=== PATIENT | female | born 1960 | race Caucasian/White ===

== ENCOUNTER 2017-06-25 22:22 | Emergency (ER) | payer OTHER ==
[2017-06-25 23:02] LABS: Hematocrit 39.5 % (36.0-47.0); Mean Platelet Volume 6.2 fL (7.4-10.4); Red Blood Cell (RBC) Count 3.94 mill/uL (4.20-5.40); White Blood Cell (WBC) Count 5.6 thou/uL (4.8-10.8)
[2017-06-25 23:14] LABS: ALT (SGPT) 17 U/L (8-55); AST (SGOT) 18 U/L (5-34); Alkaline Phosphatase 55 U/L (40-150); Anion Gap 14 mmol/L (10-20); BUN (Urea Nitrogen) 10 mg/dL (9.8-20.1); Bilirubin, Total 0.3 mg/dL (0.2-1.2); Calc. Creatinine Clearance 0 mL/min (70-130); Calcium 9.2 mg/dL (7.8-10.44); Carbon Dioxide 25 mmol/L (22-29); Chloride 105 mmol/L (98-107); Estimated GFR-MDRD 86; Globulin 3.5 g/dL (2.4-3.5); Protein, Total 7.9 g/dL (6.0-8.3)
[2017-06-25 23:15] LABS: Acetaminophen Less than 6.0 mcg/mL (10.0-30.0); CK (CPK) 55 U/L (29-168); Salicylate Less than 8.0 mg/dL (15.0-30.0)
[2017-06-25 23:16] LABS: Neutrophil 41 % (42-75); Reactive Lymphocytes 2 % (0-10)
[2017-06-25 23:27] LABS: Bilirubin Negative (Negative); Blood, Urine Negative (Negative); Glucose, Urine (Dipstick) Negative (Negative); Ketone, Urine Negative (Negative); Nitrite Negative (Negative); Protein, Urine (Dipstick) Negative (Neg-Trace); Urobilinogen 0.2 mg/dL (0.2-1.0)
[2017-06-25 23:39] LABS: Amphetamine Not Detected (NotDetected); Methadone Not Detected (NotDetected); Methamphetamine Not Detected (NotDetected)
[2017-06-26] MEDS ORDERED: Bacitracin Zinc 1 Packet ONE (00:20)
[2017-06-26] MEDS ORDERED: Ibuprofen 200 MG TAB ONE (00:36)
[2017-06-26] MEDS ORDERED: Adacel (T-DAP) 0.5 ML VIAL ONE (01:13)
== END 2017-06-26 12:42 ==
LOC: ERS 22:22
DX: S61.512A Laceration without foreign body of left wrist, initial encounter (principal); F32.9 Major depressive disorder, single episode, unspecified; F41.9 Anxiety disorder, unspecified; F43.10 Post-traumatic stress disorder, unspecified; F90.9 Attention-deficit hyperactivity disorder, unspecified type; F17.210 Nicotine dependence, cigarettes, uncomplicated; X78.1XXA Intentional self-harm by knife, initial encounter
CPT/HCPCS: 36415; 80053; 80306; 80307; 81003; 81025; 82550; 84443; 85025; 90471; 90715

== ENCOUNTER 2017-07-15 09:56 | Emergency (ER) | payer OTHER ==
[2017-07-15] MEDS ORDERED: HYDROcodone/Acetaminophen 5/325 mg Tablet ONE (10:50)
--- NOTE | 2017-07-15 11:14 | RAD ---
LUMBAR SPINE SERIES 3 VIEWS: Date: 07/15/17 HISTORY: Fell down stairs 3 days ago with back pain. FINDINGS: The vertebral bodies maintain normal height. There is disc narrowing and vacuum disc phenomenon at L5 -S1. Small osteophytes are seen at the other vertebral body levels without significant disc narrowing . No compression fracture. Pedicles are intact. IMPRESSION: Moderate degenerative disc narrowing at L5-S1. No acute injury. POS: [facility]
== END 2017-07-15 11:47 | disposition home or self-care (01) ==
LOC: SCSER 09:56
DX: S39.012A Strain of muscle, fascia and tendon of lower back, initial encounter (principal); B00.1 Herpesviral vesicular dermatitis; G89.4 Chronic pain syndrome; K58.9 Irritable bowel syndrome, unspecified; F31.9 Bipolar disorder, unspecified; F43.10 Post-traumatic stress disorder, unspecified; F90.9 Attention-deficit hyperactivity disorder, unspecified type; F17.210 Nicotine dependence, cigarettes, uncomplicated; Z79.899 Other long term (current) drug therapy; W10.9XXA Fall (on) (from) unspecified stairs and steps, initial encounter
CPT/HCPCS: 72100

== ENCOUNTER 2017-07-19 12:59 | Emergency (ER) | payer OTHER | END 2017-07-19 13:29 | disposition left against medical advice (07) | LOC: SCSER 12:59 | DX: B00.1 Herpesviral vesicular dermatitis (principal); G89.29 Other chronic pain; F31.9 Bipolar disorder, unspecified; F41.9 Anxiety disorder, unspecified; F43.10 Post-traumatic stress disorder, unspecified; F90.9 Attention-deficit hyperactivity disorder, unspecified type; F17.210 Nicotine dependence, cigarettes, uncomplicated; G62.9 Polyneuropathy, unspecified; M19.90 Unspecified osteoarthritis, unspecified site; Z79.899 Other long term (current) drug therapy | CPT/HCPCS: 36415; 80053; 85025; 86780; 99283 ==

== ENCOUNTER 2017-08-04 01:49 | Emergency (ER) | payer OTHER ==
[2017-08-04] MEDS ORDERED: Cephalexin 500 MG CAP ONE (02:28)
[2017-08-04] MEDS ORDERED: Diazepam 5 MG TAB ONE (02:41)
== END 2017-08-04 02:47 | disposition home or self-care (01) ==
LOC: SCSER 01:49
DX: G62.9 Polyneuropathy, unspecified (principal); K13.0 Diseases of lips; F17.210 Nicotine dependence, cigarettes, uncomplicated; F43.10 Post-traumatic stress disorder, unspecified; F90.9 Attention-deficit hyperactivity disorder, unspecified type; F41.9 Anxiety disorder, unspecified; F31.9 Bipolar disorder, unspecified; M19.90 Unspecified osteoarthritis, unspecified site; Z79.891 Long term (current) use of opiate analgesic; Z79.899 Other long term (current) drug therapy
CPT/HCPCS: 99283

== ENCOUNTER 2017-08-05 18:02 | Emergency (ER) | payer OTHER | END 2017-08-05 20:55 | LOC: ERS 18:02 | DX: K13.70 Unspecified lesions of oral mucosa (principal); F41.9 Anxiety disorder, unspecified; F31.9 Bipolar disorder, unspecified; F43.10 Post-traumatic stress disorder, unspecified; F90.9 Attention-deficit hyperactivity disorder, unspecified type; F17.290 Nicotine dependence, other tobacco product, uncomplicated; M19.90 Unspecified osteoarthritis, unspecified site; B19.20 Unspecified viral hepatitis C without hepatic coma; Z79.899 Other long term (current) drug therapy | CPT/HCPCS: 99282 ==

== ENCOUNTER 2018-05-15 16:40 | Emergency (ER) | payer OTHER ==
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
== END 2018-05-15 21:04 | disposition home or self-care (01) ==
LOC: SCSER 16:40
DX: S01.01XA Laceration without foreign body of scalp, initial encounter (principal); F41.9 Anxiety disorder, unspecified; F32.9 Major depressive disorder, single episode, unspecified; F90.9 Attention-deficit hyperactivity disorder, unspecified type; Z87.891 Personal history of nicotine dependence; Z79.899 Other long term (current) drug therapy; Y00.XXXA Assault by blunt object, initial encounter
CPT/HCPCS: 12002; 70450; 72125

== ENCOUNTER 2018-12-28 08:24 | Emergency (ER) | payer OTHER ==
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
--- NOTE | 2018-12-28 10:50 | CT ---
CT CERVICAL SPINE WITHOUT CONTRAST: Date: 12/28/18 HISTORY: Patient had a fall, bumped her head. COMPARISON: None. FINDINGS: No craniocervical dissociation. Lateral masses of C1 and C2 articulate appropriately. Intact odontoid process. Uncomplicated cervical fusion from C5 through C7. Disc prosthesis at C5-C6 and C6-C7 is noted. Straightening of normal cervical lordosis may be due to patient position, muscle spasm, or cervical c ollar. Current study is not tailored to assess for ligamentous injury. There is no prevertebral soft tissue swelling. Mass effect upon the posterior oral cavity due to medi al deviation of both carotid arteries is noted. There is no significant central canal stenosis. Varying degrees of foraminal narrowing due to degener ative change. Evaluation limited by technique. Presumed chronic change of visualized lung parenchyma. Cervical spine vertebral body height is maintained. There is no cervical spine fracture. IMPRESSION: 1. No cervical spine fracture. 2. Straightening of normal cervical lordosis as detailed above. If there is concern for ligamentous injury, consider MRI. POS: [facility]
--- NOTE | 2018-12-28 11:52 | CT ---
Exam: Lumbar spine CT scan without IV contrast: HISTORY: Injury, fall FINDINGS: No evidence for acute fracture or facet dislocation. Mild disc bulging at L2-L3 with slight lateral recess thickening. Mild central canal stenosis and lateral recess thinning at L3-L4. Severe canal and left lateral recess stenosis at L4-L5 secondary to a left paracentral protrusion wit h some left foraminal stenosis. Considerable sclerosis and desiccation changes at L5-S1 with moderate bilateral foraminal stenosis. IMPRESSION: No acute fracture or dislocation. Multilevel variable severity canal, lateral recess, and foraminal s tenosis, most marked at L4-L5.
--- NOTE | 2018-12-28 11:59 | CT ---
Exam: Thoracic spine CT scan without IV contrast: HISTORY: Injury following a fall Anterior cervical fusion changes at C5, C6, and C7. Generalized thoracic spine disc osteophytosis. No acute fracture or dislocation. No significant canal or lateral recess stenosis. IMPRESSION: Thoracic spine spondylosis. No fracture or dislocation.
== END 2018-12-28 13:18 | disposition home or self-care (01) ==
LOC: ERS 08:24
DX: S00.93XA Contusion of unspecified part of head, initial encounter (principal); M54.2 Cervicalgia; M19.90 Unspecified osteoarthritis, unspecified site; F90.9 Attention-deficit hyperactivity disorder, unspecified type; F41.9 Anxiety disorder, unspecified; F32.9 Major depressive disorder, single episode, unspecified; F43.10 Post-traumatic stress disorder, unspecified; Z87.891 Personal history of nicotine dependence; W01.10XA Fall on same level from slipping, tripping and stumbling with subsequent striking against unspecified object, initial encounter
CPT/HCPCS: 70450; 72126; 72128; 72131

== ENCOUNTER 2019-01-10 11:07 | Outpatient (CLI) | payer OTHER ==
--- NOTE | 2019-01-10 13:09 | RAD ---
CERVICAL SPINE TOTAL OF 5 VIEWS: HISTORY: Neck pain. Postoperative followup. FINDINGS: There are postoperative changes. Anterior fusion procedure. Anterior plate and screws transfix C5, C6, and C7. There are interbody implants with fusion at these levels. Loss of disk space at C4-5. Anterior osteophytes at C3m /C4, and C5. No significant listhesis is se en with flexion or extension. IMPRESSION: There are degenerative and postoperative changes of the cervical spine noted as described. POS: [facility]
== END 2019-01-10 11:08 | disposition home or self-care (01) ==
LOC: TBSIIMAG 11:07
PROVIDERS: ATTEND Surgery
DX: M54.2 Cervicalgia (principal); M47.812 Spondylosis without myelopathy or radiculopathy, cervical region; Z98.890 Other specified postprocedural states; W19.XXXD Unspecified fall, subsequent encounter
CPT/HCPCS: 72050

== ENCOUNTER 2021-03-03 14:23 | Emergency (ER) | payer OTHER ==
[~2021-03-03 14:23] MED LIST: Iopamidol-370 76% 500 ML 1 ML ONE
[2021-03-03 14:51] LABS: #Eosinphils 0.1 thou/uL (0.0-0.7); #Lymphocytes 1.3 thou/uL (1.20-3.40); #Monocytes 0.4 thou/uL (0.11-0.59); #Neutrophils 2.3 thou/uL (1.40-6.50); %Eosinophils 1.7 % (0.0-10.0); %Monocytes 9.9 % (0.0-10.0); %Neutrophils 55.4 % (42.0-75.0); Hemoglobin 13.3 g/dL (12.0-16.0); Mean Corpuscular HGB CONC 32.4 g/dL (32.0-36.0); Mean Corpuscular Hemoglobin 32.1 pg (27.0-31.0); Mean Corpuscular Volume 99.3 fL (78.0-98.0); Mean Platelet Volume 6.5 fL (7.4-10.4); Platelet Count 288 thou/uL (130-400); RBC Distribution Width 12.5 % (11.5-14.5); Red Blood Cell (RBC) Count 4.13 mill/uL (4.20-5.40); White Blood Cell (WBC) Count 4.2 thou/uL (4.8-10.8)
[2021-03-03 15:03] LABS: ALT (SGPT) 9 U/L (8-55); AST (SGOT) 13 U/L (5-34); Albumin 4.1 g/dL (3.5-5.0); Alkaline Phosphatase 69 U/L (40-110); Anion Gap 16 mmol/L (10-20); BUN (Urea Nitrogen) 10 mg/dL (9.8-20.1); Bilirubin, Total 0.3 mg/dL (0.2-1.2); Calc. Creatinine Clearance 0 mL/min (70-130); Calcium 9.1 mg/dL (7.8-10.44); Carbon Dioxide 20 mmol/L (22-29); Chloride 106 mmol/L (98-107); Globulin 3.2 g/dL (2.4-3.5); Glucose 107 mg/dL (70-105); Lipase 37 U/L (8-78); Potassium 4.1 mmol/L (3.5-5.1); Protein, Total 7.3 g/dL (6.0-8.3); Sodium 138 mmol/L (136-145)
[2021-03-03] MEDS ORDERED: Ondansetron PF 4 MG/2 ML Vial ONE (15:20)
[2021-03-03] MEDS ORDERED: Dicyclomine 20 MG TAB ONE (15:20)
[2021-03-03 16:25] LABS: Bilirubin Negative (Negative); Blood, Urine Negative (Negative); Clarity Clear (Clear); Glucose, Urine (Dipstick) Normal (Negative); Ketone, Urine Negative (Negative); Leukocyte Negative Leu/uL (Negative); Nitrite Negative (Negative); Protein, Urine (Dipstick) Negative (Neg-Trace); Urobilinogen Normal mg/dL (Less than 2)
[2021-03-03] MEDS ORDERED: hydrOXYzine 25 MG TAB ONE (16:26)
== END 2021-03-03 18:30 | disposition home or self-care (01) ==
LOC: ERS 14:23
DX: K57.32 Diverticulitis of large intestine without perforation or abscess without bleeding (principal); M79.7 Fibromyalgia; M19.90 Unspecified osteoarthritis, unspecified site; F17.210 Nicotine dependence, cigarettes, uncomplicated
CPT/HCPCS: 36415; 74177; 80053; 81003; 83690; 85025; 96374; J2405; Q9967

== ENCOUNTER 2021-03-09 17:23 | Inpatient (IN) | payer OTHER ==
[2021-03-09 18:22] LABS: #Basophils 0.1 thou/uL (0.0-0.2); #Eosinphils 0.1 thou/uL (0.0-0.7); #Monocytes 0.5 thou/uL (0.11-0.59); #Neutrophils 3.3 thou/uL (1.40-6.50); %Basophils 1.5 % (0.0-1.0); %Eosinophils 2.3 % (0.0-10.0); %Lymphocytes 20.6 % (21.0-51.0); %Monocytes 9.1 % (0.0-10.0); %Neutrophils 66.5 % (42.0-75.0); Hemoglobin 14.1 g/dL (12.0-16.0); Mean Corpuscular HGB CONC 33.3 g/dL (32.0-36.0); Mean Corpuscular Hemoglobin 32.5 pg (27.0-31.0); Mean Corpuscular Volume 97.5 fL (78.0-98.0); Mean Platelet Volume 6.9 fL (7.4-10.4); Platelet Count 285 thou/uL (130-400); RBC Distribution Width 12.5 % (11.5-14.5); Red Blood Cell (RBC) Count 4.35 mill/uL (4.20-5.40)
[2021-03-09] MEDS ORDERED: Morphine 4 MG/ML VIAL ONE ×2 (18:41→20:15)
[2021-03-09] MEDS ORDERED: Ondansetron PF 4 MG/2 ML Vial ONE ×2 (18:41→21:13)
[2021-03-09 18:53] LABS: Bilirubin Negative (Negative); Blood, Urine Negative (Negative); Clarity Clear (Clear); Glucose, Urine (Dipstick) Normal (Negative); Ketone, Urine Negative (Negative); Leukocyte Negative Leu/uL (Negative); Nitrite Negative (Negative); Protein, Urine (Dipstick) Negative (Neg-Trace); Specific Gravity, Urine 1.006 (1.002-1.036); Urobilinogen Normal mg/dL (Less than 2)
[2021-03-09 18:55] LABS: ALT (SGPT) 10 U/L (8-55); AST (SGOT) 20 U/L (5-34); Albumin 4.2 g/dL (3.5-5.0); Alkaline Phosphatase 62 U/L (40-110); Anion Gap 15 mmol/L (10-20); BUN (Urea Nitrogen) 7 mg/dL (9.8-20.1); Bilirubin, Total 0.3 mg/dL (0.2-1.2); Calc. Creatinine Clearance 0 mL/min (70-130); Calcium 9.4 mg/dL (7.8-10.44); Carbon Dioxide 18 mmol/L (22-29); Chloride 109 mmol/L (98-107); Globulin 3.6 g/dL (2.4-3.5); Glucose 99 mg/dL (70-105); Lipase 31 U/L (8-78); Potassium 4.2 mmol/L (3.5-5.1); Protein, Total 7.8 g/dL (6.0-8.3); Sodium 138 mmol/L (136-145)
[2021-03-09] MEDS ORDERED: metroNIDAZOLE 500 MG/100 ML BAG ONE (19:56)
[2021-03-09] MEDS ORDERED: metroNIDAZOLE 500 MG in Premix Bag 1 BAG IVPB SCH (20:00)
[2021-03-10 00:10] LABS: SARS-CoV-2 NAA Rapid Test Not Detected (NotDetected)
[2021-03-10] MEDS ORDERED: Morphine 2 MG/ML VIAL ONE (01:21)
[2021-03-10] MEDS ORDERED: Morphine 2 MG/ML VIAL SLOW IVP SCH (01:30)
[2021-03-10] MEDS ORDERED: Ondansetron ODT 4 MG TAB SL PRN (01:45)
[2021-03-10] MEDS ORDERED: Ondansetron PF 4 MG/2 ML Vial IVP PRN (01:45)
[2021-03-10] MEDS ORDERED: Sodium Chloride 0.9% 1,000 ML IV SCH (01:45)
[2021-03-10] MEDS ORDERED: Ondansetron PF 4 MG/2 ML Vial ONE (02:12)
[2021-03-10] MEDS ORDERED: Acetaminophen 325 MG TAB PO PRN (03:48)
[2021-03-10 03:49] VITALS: BMI 27.8
[2021-03-10] MEDS ORDERED: Morphine 4 MG/ML VIAL SLOW IVP PRN (03:58)
[2021-03-10] MEDS: Lorazepam 2 MG/ML VIAL SLOW IVP PRN ×3 (04:08→20:33)
[2021-03-10] MEDS: Pantoprazole 40 MG VIAL IVP SCH ×2 (04:08→17:33)
[2021-03-10] MEDS: Morphine 2 MG/ML VIAL SLOW IVP PRN ×3 (04:13→23:35)
[2021-03-10] MEDS: Sodium Chloride 0.9% 1,000 ML IV SCH ×2 (04:30→15:13)
[2021-03-10 04:41] LABS: #Eosinphils 0.1 thou/uL (0.0-0.7); #Lymphocytes 1.8 thou/uL (1.20-3.40); #Monocytes 0.4 thou/uL (0.11-0.59); #Neutrophils 2.1 thou/uL (1.40-6.50); %Basophils 1.1 % (0.0-1.0); %Eosinophils 2.3 % (0.0-10.0); %Lymphocytes 40.5 % (21.0-51.0); %Monocytes 9.9 % (0.0-10.0); %Neutrophils 46.2 % (42.0-75.0); Hemoglobin 13.8 g/dL (12.0-16.0); Mean Corpuscular HGB CONC 33.1 g/dL (32.0-36.0); Mean Corpuscular Hemoglobin 32.3 pg (27.0-31.0); Mean Corpuscular Volume 97.8 fL (78.0-98.0); Mean Platelet Volume 6.2 fL (7.4-10.4); Platelet Count 316 thou/uL (130-400); RBC Distribution Width 12.3 % (11.5-14.5); Red Blood Cell (RBC) Count 4.26 mill/uL (4.20-5.40); White Blood Cell (WBC) Count 4.5 thou/uL (4.8-10.8)
[2021-03-10 05:01] LABS: Anion Gap 10 mmol/L (10-20); BUN (Urea Nitrogen) 4 mg/dL (9.8-20.1); Calc. Creatinine Clearance 84 mL/min (70-130); Calcium 9.1 mg/dL (7.8-10.44); Carbon Dioxide 26 mmol/L (22-29); Chloride 106 mmol/L (98-107); Glucose 118 mg/dL (70-105); Potassium 3.5 mmol/L (3.5-5.1); Sodium 138 mmol/L (136-145)
[2021-03-10] MEDS ORDERED: Piperacillin/Tazobactam 3.375 GM in Sodium Chloride 0.9% 100 ML IVPB SCH ×2 (07:15→08:00)
[2021-03-10] MEDS: Dicyclomine 20 MG TAB PO SCH ×4 (08:33→20:33)
[2021-03-10 09:05] LABS: Amphetamine Not Detected (NotDetected); Barbiturates Screen Not Detected (NotDetected); Benzodiazepine Screen Not Detected (NotDetected); Cocaine Metabolite Screen Not Detected (NotDetected); Medtox Control Line Valid? VALID (VALID); Medtox Reader # READER 1; Methadone Not Detected (NotDetected); Methamphetamine Not Detected (NotDetected); Opiate Screen Detected (NotDetected); Oxycodone Screen Not Detected (NotDetected); Phencyclidine (PCP) Not Detected (NotDetected); THC/Cannabinoid Screen Detected (NotDetected); Tricyclic Screen Not Detected (NotDetected)
[2021-03-10] MEDS: Piperacillin/Tazobactam 3.375 GM in Sodium Chloride 0.9% 100 ML IVPB SCH ×2 (17:34→23:37)
[2021-03-10] MEDS: Ondansetron PF 4 MG/2 ML Vial IVP PRN (23:43)
[2021-03-11] MEDS: Lorazepam 2 MG/ML VIAL SLOW IVP PRN (02:19)
[2021-03-11] MEDS: Sodium Chloride 0.9% 1,000 ML IV SCH ×2 (03:43→18:11)
[2021-03-11] MEDS: Pantoprazole 40 MG VIAL IVP SCH ×2 (03:44→18:11)
[2021-03-11 04:45] LABS: #Eosinphils 0.1 thou/uL (0.0-0.7); #Lymphocytes 1.8 thou/uL (1.20-3.40); #Monocytes 0.5 thou/uL (0.11-0.59); #Neutrophils 2.2 thou/uL (1.40-6.50); %Basophils 0.4 % (0.0-1.0); %Eosinophils 2.2 % (0.0-10.0); %Lymphocytes 39.2 % (21.0-51.0); %Monocytes 10.9 % (0.0-10.0); %Neutrophils 47.4 % (42.0-75.0); Hemoglobin 13.1 g/dL (12.0-16.0); Mean Corpuscular Hemoglobin 33.1 pg (27.0-31.0); Mean Corpuscular Volume 97.2 fL (78.0-98.0); Mean Platelet Volume 6.8 fL (7.4-10.4); Platelet Count 284 thou/uL (130-400); RBC Distribution Width 12.3 % (11.5-14.5); Red Blood Cell (RBC) Count 3.95 mill/uL (4.20-5.40); White Blood Cell (WBC) Count 4.6 thou/uL (4.8-10.8)
[2021-03-11 04:57] LABS: Anion Gap 12 mmol/L (10-20); BUN (Urea Nitrogen) 7 mg/dL (9.8-20.1); Calc. Creatinine Clearance 84 mL/min (70-130); Calcium 8.8 mg/dL (7.8-10.44); Carbon Dioxide 20 mmol/L (22-29); Chloride 108 mmol/L (98-107); Glucose 136 mg/dL (70-105); Potassium 3.6 mmol/L (3.5-5.1); Sodium 136 mmol/L (136-145)
[2021-03-11] MEDS: Morphine 2 MG/ML VIAL SLOW IVP PRN ×3 (06:33→18:09)
[2021-03-11] MEDS ORDERED: Iopamidol 370 76% 100 ML VIAL ONE (09:29)
[2021-03-11] MEDS: Piperacillin/Tazobactam 3.375 GM in Sodium Chloride 0.9% 100 ML IVPB SCH ×2 (10:25→18:09)
[2021-03-11] MEDS: Dicyclomine 20 MG TAB PO SCH ×4 (10:26→20:39)
[2021-03-11] MEDS: Ondansetron PF 4 MG/2 ML Vial IVP PRN (15:21)
[2021-03-11] MEDS ORDERED: Promethazine HCl 25 MG in Sodium Chloride 0.9% 50 ML IVPB PRN (20:47)
[2021-03-11] MEDS: HYDROcodone/Acetaminophen 5/325 mg Tablet PO PRN (21:31)
[2021-03-11] MEDS: Ondansetron HCl/PF 8 MG in Sodium Chloride 0.9% 50 ML IVPB SCH (22:44)
[2021-03-12] MEDS: Lorazepam 2 MG/ML VIAL SLOW IVP PRN ×3 (00:22→17:22)
[2021-03-12] MEDS: Piperacillin/Tazobactam 3.375 GM in Sodium Chloride 0.9% 100 ML IVPB SCH ×3 (01:01→17:18)
[2021-03-12] MEDS: HYDROcodone/Acetaminophen 5/325 mg Tablet PO PRN (02:26)
[2021-03-12] MEDS: Pantoprazole 40 MG VIAL IVP SCH (05:13)
[2021-03-12 07:07] LABS: #Eosinphils 0.1 thou/uL (0.0-0.7); #Lymphocytes 1.9 thou/uL (1.20-3.40); #Monocytes 0.5 thou/uL (0.11-0.59); #Neutrophils 1.8 thou/uL (1.40-6.50); %Eosinophils 2.7 % (0.0-10.0); %Lymphocytes 44.1 % (21.0-51.0); %Monocytes 11.1 % (0.0-10.0); %Neutrophils 41.2 % (42.0-75.0); Hemoglobin 12.5 g/dL (12.0-16.0); Mean Corpuscular HGB CONC 33.3 g/dL (32.0-36.0); Mean Corpuscular Hemoglobin 32.3 pg (27.0-31.0); Mean Platelet Volume 6.5 fL (7.4-10.4); Platelet Count 301 thou/uL (130-400); RBC Distribution Width 12.3 % (11.5-14.5); Red Blood Cell (RBC) Count 3.86 mill/uL (4.20-5.40); White Blood Cell (WBC) Count 4.3 thou/uL (4.8-10.8)
[2021-03-12 07:24] LABS: Anion Gap 12 mmol/L (10-20); BUN (Urea Nitrogen) 8 mg/dL (9.8-20.1); Calc. Creatinine Clearance 85 mL/min (70-130); Calcium 8.7 mg/dL (7.8-10.44); Carbon Dioxide 19 mmol/L (22-29); Chloride 109 mmol/L (98-107); Glucose 99 mg/dL (70-105); Potassium 4.3 mmol/L (3.5-5.1); Sodium 136 mmol/L (136-145)
[2021-03-12] MEDS: Dicyclomine 20 MG TAB PO SCH ×4 (10:06→21:03)
[2021-03-12] MEDS: Sodium Chloride 0.9% 1,000 ML IV SCH (10:06)
[2021-03-12] MEDS: Ondansetron HCl/PF 8 MG in Sodium Chloride 0.9% 50 ML IVPB SCH ×2 (10:06→21:07)
[2021-03-12] MEDS: Morphine 2 MG/ML VIAL SLOW IVP PRN (11:41)
[2021-03-12] MEDS ORDERED: GoLYTELY 4,000 ml Bottle PO SCH (17:00)
[2021-03-12] MEDS: Metoclopramide HCl 10 MG TAB PO SCH ×2 (17:19→21:03)
[2021-03-13] MEDS: Piperacillin/Tazobactam 3.375 GM in Sodium Chloride 0.9% 100 ML IVPB SCH ×2 (00:30→09:25)
[2021-03-13 04:11] LABS: #Eosinphils 0.1 thou/uL (0.0-0.7); #Lymphocytes 1.8 thou/uL (1.20-3.40); #Monocytes 0.5 thou/uL (0.11-0.59); #Neutrophils 2.7 thou/uL (1.40-6.50); %Basophils 0.1 % (0.0-1.0); %Eosinophils 2.2 % (0.0-10.0); %Monocytes 9.7 % (0.0-10.0); %Neutrophils 52.9 % (42.0-75.0); Hemoglobin 12.2 g/dL (12.0-16.0); Mean Corpuscular HGB CONC 32.7 g/dL (32.0-36.0); Mean Corpuscular Hemoglobin 31.5 pg (27.0-31.0); Mean Corpuscular Volume 96.3 fL (78.0-98.0); Mean Platelet Volume 6.6 fL (7.4-10.4); Platelet Count 303 thou/uL (130-400); RBC Distribution Width 12.2 % (11.5-14.5); Red Blood Cell (RBC) Count 3.87 mill/uL (4.20-5.40); White Blood Cell (WBC) Count 5.1 thou/uL (4.8-10.8)
[2021-03-13 04:41] LABS: Anion Gap 14 mmol/L (10-20); BUN (Urea Nitrogen) 4 mg/dL (9.8-20.1); Calc. Creatinine Clearance 88 mL/min (70-130); Calcium 8.9 mg/dL (7.8-10.44); Carbon Dioxide 21 mmol/L (22-29); Chloride 109 mmol/L (98-107); Glucose 93 mg/dL (70-105); Potassium 3.7 mmol/L (3.5-5.1); Sodium 140 mmol/L (136-145)
[2021-03-13] MEDS: Metoclopramide HCl 10 MG TAB PO SCH ×3 (08:33→18:07)
[2021-03-13] MEDS: Dicyclomine 20 MG TAB PO SCH ×4 (08:33→21:15)
[2021-03-13] MEDS: Ondansetron HCl/PF 8 MG in Sodium Chloride 0.9% 50 ML IVPB SCH ×2 (08:33→21:15)
[2021-03-13] MEDS ORDERED: Morphine 2 MG/ML VIAL ONE (10:59)
[2021-03-13] MEDS ORDERED: Midazolam HCl 2 mg/2 ml Vial ONE (12:54)
[2021-03-13] MEDS ORDERED: diphenhydrAMINE 50 MG/ML VIAL ONE (12:59)
[2021-03-13] MEDS ORDERED: Promethazine HCl 25 MG/ML VIAL ONE (13:04)
[2021-03-13] MEDS ORDERED: PROPOFOL 200 MG/20 ML VIAL ONE (14:01)
[2021-03-13] MEDS ORDERED: Meperidine HCl/PF 25 MG/ML VIAL SLOW IVP PRN (14:35)
[2021-03-13] MEDS ORDERED: Ondansetron HCl/PF 4 MG/2 ML Vial IVP PRN (14:35)
[2021-03-13] MEDS ORDERED: Promethazine HCl 25 MG/ML VIAL IVPB PRN (14:35)
[2021-03-13] MEDS ORDERED: Ketorolac Tromethamine 30 MG/ML VIAL IVP PRN (14:35)
[2021-03-13] MEDS ORDERED: PACU-Morphine 4MG/ML VIAL SLOW IVP PRN (14:35)
[2021-03-13] MEDS ORDERED: Promethazine HCl 25 MG/ML VIAL IM PRN (14:35)
[2021-03-13] MEDS: Lorazepam 2 MG/ML VIAL SLOW IVP PRN ×2 (15:38→22:34)
[2021-03-13] MEDS ORDERED: Nicotine 14 MG PATCH TOP SCH (18:45)
[2021-03-13] MEDS ORDERED: Ketorolac Tromethamine 30 MG/ML VIAL IVP SCH (23:45)
[2021-03-14] MEDS: Lorazepam 2 MG/ML VIAL SLOW IVP PRN (04:42)
[2021-03-14] MEDS: Ondansetron HCl/PF 8 MG in Sodium Chloride 0.9% 50 ML IVPB SCH (08:09)
[2021-03-14] MEDS: Dicyclomine 20 MG TAB PO SCH ×2 (08:09→13:27)
[2021-03-14 09:11] VITALS: BP 108/60; TEMP 98.2
[2021-03-15 12:16] LABS: Lyme IgG/IgM AB <0.91 ISR (0.00-0.90)
== END 2021-03-14 14:50 | disposition home or self-care (01) | DRG 393 ==
LOC: ERS 17:23 → ERHOLD 21:23 → ONC 03-10 02:50 → OBSVTOIN 03-11 06:58
PROVIDERS: ADMIT Internal Medicine; ATTEND Internal Medicine
PROC: 0DJ08ZZ Inspection of Upper Intestinal Tract, Via Natural or Artificial Opening Endoscopic (ICD-10-PCS; principal; 2021-03-13)
PROC: 0DJD8ZZ Inspection of Lower Intestinal Tract, Via Natural or Artificial Opening Endoscopic (ICD-10-PCS; 2021-03-13)
DX: R11.15 Cyclical vomiting syndrome unrelated to migraine (principal); K57.31 Diverticulosis of large intestine without perforation or abscess with bleeding; I77.4 Celiac artery compression syndrome; M79.7 Fibromyalgia; G62.9 Polyneuropathy, unspecified; M19.90 Unspecified osteoarthritis, unspecified site; F32.9 Major depressive disorder, single episode, unspecified; F43.10 Post-traumatic stress disorder, unspecified; K58.1 Irritable bowel syndrome with constipation; F12.980 Cannabis use, unspecified with anxiety disorder; K58.0 Irritable bowel syndrome with diarrhea; Z86.19 Personal history of other infectious and parasitic diseases; Z79.899 Other long term (current) drug therapy; Z88.5 Allergy status to narcotic agent; Z88.8 Allergy status to other drugs, medicaments and biological substances; Z83.79 Family history of other diseases of the digestive system; Z87.891 Personal history of nicotine dependence
CPT/HCPCS: 36415; 74174; 74177; 80048; 80053; 80306; 81003; 82274; 83605; 83690; 85025; 86618; 87086; 87177; 96365; 96367; 96375; 96376; C9113; G0378; J0744; J1200; J1885; J2060; J2250; J2270; J2405; J2543; J2550; J2704; J3490; Q9967; U0002; U0005

== ENCOUNTER 2021-05-06 08:22 | Outpatient (CLI) | payer OTHER | END 2021-05-06 08:23 | disposition home or self-care (01) | LOC: BICMRI 08:22 | PROVIDERS: ATTEND Neurological Surgery | DX: M48.061 Spinal stenosis, lumbar region without neurogenic claudication (principal); M51.16 Intervertebral disc disorders with radiculopathy, lumbar region; M51.37 Other intervertebral disc degeneration, lumbosacral region | CPT/HCPCS: 72148 ==

== ENCOUNTER 2023-04-29 17:33 | Emergency (ER) | payer OTHER | END 2023-04-29 18:04 | LOC: ERS 17:33 | DX: F29 Unspecified psychosis not due to a substance or known physiological condition (principal) | CPT/HCPCS: 99284 ==

== ENCOUNTER 2023-04-30 01:07 | Emergency (ER) | payer OTHER ==
[2023-04-30 02:14] LABS: #Eosinphils 0.1 thou/uL (0.0-0.7); #Monocytes 0.7 thou/uL (0.11-0.59); #Neutrophils 4.1 thou/uL (1.40-6.50); %Basophils 0.3 % (0.0-1.0); %Eosinophils 0.9 % (0.0-10.0); %Lymphocytes 16.1 % (21.0-51.0); %Monocytes 11.6 % (0.0-10.0); %Neutrophils 70.9 % (42.0-75.0); Hematocrit 34.6 % (36.0-47.0); Hemoglobin 11.4 g/dL (12.0-16.0); Mean Corpuscular HGB CONC 32.9 g/dL (32.0-36.0); Mean Corpuscular Hemoglobin 30.8 pg (27.0-31.0); Mean Corpuscular Volume 93.5 fl (78.0-98.0); Mean Platelet Volume 8.9 fL (7.4-10.4); Platelet Count 251 10x3/uL (130-400); RBC Distribution Width 13.7 % (11.5-14.5); White Blood Cell (WBC) Count 5.8 10x3/uL (4.8-10.8)
[2023-04-30 02:38] LABS: ALT (SGPT) 22 U/L (8-55); AST (SGOT) 38 U/L (5-34); Albumin 4.5 g/dL (3.5-5.0); Alkaline Phosphatase 65 U/L (40-110); Anion Gap 19 mmol/L (10-20); BUN (Urea Nitrogen) 23 mg/dL (9.8-20.1); Bilirubin, Total 0.9 mg/dL (0.2-1.2); Calc. Creatinine Clearance 0 mL/min (70-130); Calcium 9.3 mg/dL (7.8-10.44); Carbon Dioxide 17 mmol/L (22-29); Chloride 102 mmol/L (98-107); Estimated GFR 88; Globulin 3.5 g/dL (2.4-3.5); Glucose 97 mg/dL (70-105); Potassium 3.6 mmol/L (3.5-5.1); Sodium 134 mmol/L (136-145)
[2023-04-30] MEDS ORDERED: Acetaminophen 500 MG TAB ONE (03:44)
== END 2023-04-30 03:32 ==
LOC: ERS 01:07
DX: F43.20 Adjustment disorder, unspecified (principal); F17.210 Nicotine dependence, cigarettes, uncomplicated
CPT/HCPCS: 36415; 80053; 85025; 93005; 99284

== ENCOUNTER 2023-05-02 07:07 | Emergency (ER) | payer OTHER ==
[2023-05-02 07:46] LABS: #Eosinphils 0.1 thou/uL (0.0-0.7); #Monocytes 0.5 thou/uL (0.11-0.59); #Neutrophils 2.3 thou/uL (1.40-6.50); %Basophils 0.5 % (0.0-1.0); %Eosinophils 1.5 % (0.0-10.0); %Monocytes 12.5 % (0.0-10.0); %Neutrophils 59.2 % (42.0-75.0); Hematocrit 33.4 % (36.0-47.0); Hemoglobin 11.3 g/dL (12.0-16.0); Mean Corpuscular HGB CONC 33.8 g/dL (32.0-36.0); Mean Corpuscular Hemoglobin 31.2 pg (27.0-31.0); Mean Corpuscular Volume 92.3 fl (78.0-98.0); Mean Platelet Volume 8.8 fL (7.4-10.4); Platelet Count 250 10x3/uL (130-400); RBC Distribution Width 13.7 % (11.5-14.5); Red Blood Cell (RBC) Count 3.62 mill/uL (4.20-5.40); White Blood Cell (WBC) Count 3.9 10x3/uL (4.8-10.8)
[2023-05-02 07:58] LABS: ALT (SGPT) 18 U/L (8-55); AST (SGOT) 20 U/L (5-34); Alkaline Phosphatase 57 U/L (40-110); Anion Gap 13 mmol/L (10-20); BUN (Urea Nitrogen) 11 mg/dL (9.8-20.1); Bilirubin, Total 0.5 mg/dL (0.2-1.2); Calc. Creatinine Clearance 0 mL/min (70-130); Calcium 9.1 mg/dL (7.8-10.44); Carbon Dioxide 19 mmol/L (22-29); Chloride 108 mmol/L (98-107); Estimated GFR 97; Globulin 3.2 g/dL (2.4-3.5); Glucose 126 mg/dL (70-105); Lipase 33 U/L (8-78); Potassium 3.1 mmol/L (3.5-5.1); Protein, Total 7.2 g/dL (6.0-8.3); Sodium 137 mmol/L (136-145)
[2023-05-02] MEDS ORDERED: Haloperidol Lactate 5 MG/ML VIAL ONE (08:01)
[2023-05-02 08:26] LABS: Troponin I Less than 0.010 ng/mL (< 0.028)
[2023-05-02] MEDS ORDERED: Diazepam 5 MG TAB ONE (09:02)
[2023-05-02 11:07] LABS: Bacteria/HPF None Seen HPF (None Seen); Bilirubin Negative (Negative); Blood, Urine Negative (Negative); CAUTI Indications for Culture Dysuria,urgency,freq; Clarity Clear (Clear); Glucose, Urine (Dipstick) Normal (Negative); Ketone, Urine 20 mg/dL (Negative); Leukocyte Negative Leu/uL (Negative); Nitrite Negative (Negative); Protein, Urine (Dipstick) Negative (Neg-Trace); RBC/HPF 0-3 HPF (0-3); Specific Gravity, Urine 1.012 (1.002-1.036); Squamous Epithelial 0-3 HPF (0-3); Urobilinogen Normal mg/dL (Less than 2); WBC/HPF 0-3 HPF (0-3); pH, Urine 5.5 (5.0-9.0)
[2023-05-02 11:09] LABS: Urine Culture Reflex No No
== END 2023-05-02 13:00 ==
LOC: EEVIPCON 07:07 → ERS 07:07
DX: F19.230 Other psychoactive substance dependence with withdrawal, uncomplicated (principal); M79.10 Myalgia, unspecified site; R11.2 Nausea with vomiting, unspecified; F17.210 Nicotine dependence, cigarettes, uncomplicated
CPT/HCPCS: 36415; 80053; 81001; 83690; 84443; 84484; 85025; 93005; 96361; 96374; J1630

== ENCOUNTER 2023-07-28 17:34 | Emergency (ER) | payer OTHER ==
[2023-07-28 18:19] LABS: #Eosinphils 0.2 thou/uL (0.0-0.7); #Monocytes 0.7 thou/uL (0.11-0.59); #Neutrophils 2.7 thou/uL (1.40-6.50); %Basophils 0.7 % (0.0-1.0); %Eosinophils 3.5 % (0.0-10.0); %Lymphocytes 22.3 % (21.0-51.0); %Monocytes 14.4 % (0.0-10.0); %Neutrophils 58.7 % (42.0-75.0); Hematocrit 34.7 % (36.0-47.0); Hemoglobin 11.5 g/dL (12.0-16.0); Mean Corpuscular HGB CONC 33.1 g/dL (32.0-36.0); Mean Corpuscular Hemoglobin 31.3 pg (27.0-31.0); Mean Corpuscular Volume 94.3 fl (78.0-98.0); Mean Platelet Volume 9.5 fL (7.4-10.4); Platelet Count 231 10x3/uL (130-400); RBC Distribution Width 13.9 % (11.5-14.5); Red Blood Cell (RBC) Count 3.68 mill/uL (4.20-5.40); White Blood Cell (WBC) Count 4.6 10x3/uL (4.8-10.8)
[2023-07-28 18:43] LABS: ALT (SGPT) 10 U/L (8-55); AST (SGOT) 14 U/L (5-34); Albumin 3.8 g/dL (3.4-4.8); Alkaline Phosphatase 57 U/L (40-110); Anion Gap 15 mmol/L (10-20); BUN (Urea Nitrogen) 15 mg/dL (9.8-20.1); Bilirubin, Total 0.7 mg/dL (0.2-1.2); Calc. Creatinine Clearance 0 mL/min (70-130); Calcium 8.3 mg/dL (7.8-10.44); Carbon Dioxide 17 mmol/L (23-31); Chloride 110 mmol/L (98-107); Estimated GFR 94; Globulin 2.5 g/dL (2.4-3.5); Glucose 85 mg/dL (80-115); Lipase 12 U/L (8-78); Protein, Total 6.3 g/dL (5.8-8.1); Sodium 138 mmol/L (136-145)
[2023-07-28 18:47] LABS: Troponin I Less than 0.010 ng/mL (< 0.028)
[2023-07-28] MEDS ORDERED: Dicyclomine 20 MG TAB ONE (19:20)
[2023-07-28] MEDS ORDERED: Metoclopramide HCl 10 MG/2 ML VIAL ONE (19:20)
[2023-07-28] MEDS ORDERED: Famotidine/PF 20 mg/2ml Vial ONE (19:21)
[2023-07-28] MEDS ORDERED: LORazepam 2 MG/ML SYR.(CARPUJECT) ONE (19:21)
[2023-07-28 20:35] LABS: Bacteria/HPF None Seen HPF (None Seen); Bilirubin Negative (Negative); Blood, Urine Negative (Negative); CAUTI Indications for Culture Pelvic or flank pain; Clarity Clear (Clear); Glucose, Urine (Dipstick) Normal (Negative); Ketone, Urine 10 mg/dL (Negative); Leukocyte Negative Leu/uL (Negative); Nitrite Negative (Negative); Protein, Urine (Dipstick) Negative (Neg-Trace); RBC/HPF 0-3 HPF (0-3); Specific Gravity, Urine 1.006 (1.002-1.036); Squamous Epithelial None Seen HPF (0-3); Urobilinogen Normal mg/dL (Less than 2); WBC/HPF 0-3 HPF (0-3); pH, Urine 7.5 (5.0-9.0)
[2023-07-28 20:50] LABS: Urine Culture Reflex No No
[2023-07-28 21:05] LABS: Magnesium 2.3 mg/dL (1.6-2.6)
[2023-07-28] MEDS ORDERED: Magnesium 2 GM/50 ML BAG (IN WATER) ONE (21:13)
[2023-07-29 01:17] LABS: Campy jejuni + coli by PCR Negative (Negative); STEC Shiga Toxin 1+2 Negative (Negative); Salmonella spp. by PCR Negative (Negative); Shigella spp + EIEC by PCR Negative (Negative)
== END 2023-07-28 22:49 | disposition home or self-care (01) ==
LOC: ERS 17:34
DX: R07.9 Chest pain, unspecified (principal); R10.9 Unspecified abdominal pain; R19.7 Diarrhea, unspecified; F17.210 Nicotine dependence, cigarettes, uncomplicated
CPT/HCPCS: 36415; 71045; 80053; 81001; 83690; 83735; 84484; 85025; 87086; 87324; 87449; 87505; 93005; 96365; 96375; J2060; J2765; J3475; S0028

== ENCOUNTER 2023-08-14 11:08 | Emergency (ER) | payer OTHER ==
[2023-08-14] MEDS ORDERED: Acetaminophen 650 MG/20.3 ML UDCUP ONE (11:49)
[2023-08-14] MEDS ORDERED: Bacitracin 1 PK ONE (11:54)
== END 2023-08-14 12:24 | disposition home or self-care (01) ==
LOC: ERS 11:08
DX: B00.1 Herpesviral vesicular dermatitis (principal); F17.210 Nicotine dependence, cigarettes, uncomplicated
CPT/HCPCS: 99283

== ENCOUNTER 2024-03-05 11:16 | Outpatient (CLI) | payer OTHER | END 2024-03-05 11:17 | disposition home or self-care (01) | LOC: BICRAD 11:16 | PROVIDERS: ATTEND Family Medicine | DX: M25.551 Pain in right hip (principal); M54.50 Low back pain, unspecified; M47.816 Spondylosis without myelopathy or radiculopathy, lumbar region; W19.XXXA Unspecified fall, initial encounter | CPT/HCPCS: 72100 ==

== ENCOUNTER 2025-06-02 14:23 | Emergency (ER) | payer MEDICAID, OTHER ==
[~2025-06-02 14:23] MED LIST changes: +Iopamidol 370 76% 100 ML VIAL ONE; -Iopamidol-370 76% 500 ML 1 ML ONE
[2025-06-02] MEDS ORDERED: Ondansetron PF 4 MG/2 ML Vial ONE (15:11)
[2025-06-02 15:16] LABS: #Basophils 0.03 10x3/uL (0.0-0.2); #Eosinophils 0.07 10x3/uL (0.0-0.7); #Monocytes 0.43 10x3/uL (0.11-0.59); #Neutrophils 2.42 10x3/uL (1.40-6.50); %Basophils 0.6 % (0.0-1.0); %Eosinophils 1.3 % (0.0-10.0); %Lymphocytes 45.4 % (21.0-51.0); %Monocytes 7.9 % (0.0-10.0); %Neutrophils 44.6 % (42.0-75.0); Hematocrit 41.2 % (36.0-47.0); Hemoglobin 13.6 g/dL (12.0-16.0); Mean Corpuscular Hemoglobin 29.8 pg (27.0-31.0); Mean Corpuscular Volume 90.2 fL (78.0-98.0); Platelet Count 266 10x3/uL (130-400); Red Blood Cell (RBC) Count 4.57 mill/uL (4.20-5.40); White Blood Cell (WBC) Count 5.42 10x3/uL (4.8-10.8)
[2025-06-02 15:30] LABS: INR-International Normal Ratio 0.9; Lipase 25 U/L (8-78); Prothrombin Time 12.6 sec (12.0-14.7)
[2025-06-02 15:31] LABS: PTT 29.4 sec (22.9-36.1)
[2025-06-02 15:32] LABS: Acetaminophen Less than 10 mcg/mL (Less than 10); Salicylate Less than 8.0 mg/dL (Less than 8.0)
[2025-06-02 15:33] LABS: ALT (SGPT) 11 U/L (Less than 34); AST (SGOT) 14 U/L (11-34); Albumin 4.2 g/dL (3.1-4.5); Alkaline Phosphatase 63 U/L (40-110); Anion Gap 21 mmol/L (10-20); BUN (Urea Nitrogen) 17 mg/dL (9.8-20.1); Bilirubin, Total 0.4 mg/dL (0.3-1.2); Calc. Creatinine Clearance 0 mL/min (70-130); Calcium 10.1 mg/dL (7.8-10.44); Carbon Dioxide 15 mmol/L (23-31); Chloride 110 mmol/L (98-107); Globulin 3.3 g/dL (2.4-3.5); Glucose 99 mg/dL (80-115); Potassium 3.7 mmol/L (3.5-5.1); Sodium 142 mmol/L (136-145)
[2025-06-02 16:45] LABS: Bacteria/HPF None Seen HPF (None Seen); CAUTI Indications for Culture Dysuria,urgency,freq; Glucose, Urine (Dipstick) Normal (Negative); Leukocyte Negative Leu/uL (Negative); Protein, Urine (Dipstick) Negative (Neg-Trace); RBC/HPF 0-3 HPF (0-3); Specific Gravity, Urine 1.019 (1.002-1.036); WBC/HPF None Seen HPF (0-3)
[2025-06-02 16:46] LABS: Urine Culture Reflex No No
[2025-06-02 16:53] LABS: Cocaine Metabolite Screen Negative (Negative); THC/Cannabinoid Screen PRELIM POSITIVE (Negative); Tricyclic Screen Negative (Negative)
[2025-06-02 17:29] LABS: #Basophils Less than 0.03 10x3/uL (0.0-0.2); #Eosinophils 0.06 10x3/uL (0.0-0.7); #Monocytes 0.63 10x3/uL (0.11-0.59); #Neutrophils 7.21 10x3/uL (1.40-6.50); %Basophils 0.2 % (0.0-1.0); %Eosinophils 0.7 % (0.0-10.0); %Lymphocytes 13.7 % (21.0-51.0); %Monocytes 6.8 % (0.0-10.0); %Neutrophils 78.2 % (42.0-75.0); Hematocrit 36.1 % (36.0-47.0); Hemoglobin 12.1 g/dL (12.0-16.0); Mean Corpuscular Hemoglobin 30.8 pg (27.0-31.0); Mean Corpuscular Volume 91.9 fL (78.0-98.0); Platelet Count 203 10x3/uL (130-400); Red Blood Cell (RBC) Count 3.93 mill/uL (4.20-5.40); White Blood Cell (WBC) Count 9.22 10x3/uL (4.8-10.8)
[2025-06-02] MEDS ORDERED: Ketorolac Tromethamine 30 MG (1 mL) VIAL ONE (17:41)
[2025-06-02 17:46] LABS: Anion Gap 14 mmol/L (10-20); BUN (Urea Nitrogen) 14 mg/dL (9.8-20.1); Calc. Creatinine Clearance 0 mL/min (70-130); Calcium 8.7 mg/dL (7.8-10.44); Carbon Dioxide 19 mmol/L (23-31); Chloride 114 mmol/L (98-107); Glucose 94 mg/dL (80-115); Potassium 4.1 mmol/L (3.5-5.1); Sodium 143 mmol/L (136-145)
== END 2025-06-02 19:40 | disposition home or self-care (01) ==
LOC: ERS 14:23
DX: K59.00 Constipation, unspecified (principal); R10.31 Right lower quadrant pain; R10.32 Left lower quadrant pain; F17.210 Nicotine dependence, cigarettes, uncomplicated; Z55.6 Problems related to health literacy
CPT/HCPCS: 36415; 71045; 74177; 80053; 80306; 80307; 81001; 83605; 83690; 85025; 85610; 85730; 87040; 93005; 94760; 96372; 96374; 96375; J1885; Q9967

== ENCOUNTER 2025-06-10 11:55 | Emergency (ER) | payer MEDICAID ==
[~2025-06-10 11:55] MED LIST changes: -Iopamidol 370 76% 100 ML VIAL ONE; +Iopamidol-370 76% 500 ML MDV (1 ML CHARGE) ONE
[2025-06-10] MEDS ORDERED: Ondansetron PF 4 MG/2 ML Vial ONE (12:12)
[2025-06-10 12:20] LABS: #Basophils Less than 0.03 10x3/uL (0.0-0.2); #Eosinophils 0.13 10x3/uL (0.0-0.7); #Monocytes 0.53 10x3/uL (0.11-0.59); #Neutrophils 3.68 10x3/uL (1.40-6.50); %Basophils 0.3 % (0.0-1.0); %Eosinophils 2.2 % (0.0-10.0); %Lymphocytes 27.1 % (21.0-51.0); %Monocytes 8.8 % (0.0-10.0); %Neutrophils 61.1 % (42.0-75.0); Hematocrit 42.2 % (36.0-47.0); Hemoglobin 13.4 g/dL (12.0-16.0); Mean Corpuscular Hemoglobin 29.9 pg (27.0-31.0); Mean Corpuscular Volume 94.2 fL (78.0-98.0); Platelet Count 325 10x3/uL (130-400); Red Blood Cell (RBC) Count 4.48 mill/uL (4.20-5.40); White Blood Cell (WBC) Count 6.02 10x3/uL (4.8-10.8)
[2025-06-10 12:37] LABS: ALT (SGPT) Less than 7 U/L (Less than 34); AST (SGOT) 28 U/L (11-34); Albumin 4.4 g/dL (3.1-4.5); Alkaline Phosphatase 61 U/L (40-110); Anion Gap 23 mmol/L (10-20); BUN (Urea Nitrogen) 17 mg/dL (9.8-20.1); Bilirubin, Total 0.2 mg/dL (0.3-1.2); Calc. Creatinine Clearance 0 mL/min (70-130); Calcium 9.8 mg/dL (7.8-10.44); Carbon Dioxide 17 mmol/L (23-31); Chloride 104 mmol/L (98-107); Globulin 3.8 g/dL (2.4-3.5); Glucose 127 mg/dL (80-115); Lipase 17 U/L (8-78); Potassium 4.8 mmol/L (3.5-5.1); Sodium 139 mmol/L (136-145)
== END 2025-06-10 16:51 | disposition home or self-care (01) ==
LOC: ERS 11:55
DX: R10.9 Unspecified abdominal pain (principal); R19.7 Diarrhea, unspecified; F17.210 Nicotine dependence, cigarettes, uncomplicated
CPT/HCPCS: 74174; 80053; 83605; 83690; 84484; 85025; 87324; 87449; 93005; 96361; 96374; 96375; J2060; Q0162; Q9967